=== PATIENT | female | born 1950 | race Caucasian/White ===

== ENCOUNTER 2023-02-12 04:54 | Emergency (ER) | payer MEDICARE, SELFPAY ==
[2023-02-12] VITALS (14 sets, daily range): BP systolic 115; BP diastolic 75; PULSE 82–110; RESP 12–21; TEMP 36.6; O2SAT 100; BMI 22.1
--- NOTE | 2023-02-12 05:17 | PC.NURSE ---
To ED with bilateral leg pain and cramping. Pain started after she had a vasovagal episode at home and thought she was going to pass out, so she laid on her couch and put her legs up. When she put her legs up, the cramping started. Cramping is on the top of the right thigh and right calf, and top of the left thigh as well. Right is worse than left. She is still feeling dizzy with movement. She stood at the bedside to empty her ostomy bag and felt like she was going to fall, asked for assistance to lay back down.
--- NOTE | 2023-02-12 05:28 | ECG_ITS ---
[facility] Test Date: 2023-02-12 Pat Name: ZONIA GUTIERREZ Department: Room: - Gender: Female [employer] Maker: : [id number] Requested By: [id number] Order Number: [id number] Reading MD: JERRY POLLARD Measurements Intervals [place] Rate: 100 P: 71 [place]: 146 QRS: 78 QRSD: 86 T: 69 QT: 338 QTc: 395 Interpretive Statements 1120 Sinus tachycardia Non-Specific T wave inversion in aVL 9140 abnormal rhythm ECG No previous ECG available for comparison Electronically Signed On 02-12-2023 7:20:35 EST by JERRY POLLARD
--- NOTE | 2023-02-12 05:28 | ED.GENADUL1 ---
HPI - General Adult General Chief complaint: Extremity Injury, Lower Stated complaint: BACK/LEG PAIN Time Seen by Provider: 02/12/23 05:04 Source: patient Mode of arrival: ambulance History of Present Illness HPI narrative: This 72-year-old female with a history of vasovagal syncope is brought to the emergency department by EMS from home. The patient states she got up to use the bathroom this morning and felt like she was going to faint. She states this is not uncommon for her and when she feels this way she needs to lie down and put her feet up as soon as possible. She states that she went from the bathroom into the living room and lay down on the floor and put her feet up on the couch and started to have some cramps in her back and legs. She did not pass out. She denies any nausea or vomiting. She has no chest pain or shortness of breath. The patient does have a history of Crohn's disease and had a series of surgeries in the and ultimately had a colostomy placed. She states that since she had her surgery and colostomy placed she has not had any problem with her Crohn's disease. She has been having normal liquid stools for her. There has not been any blood in her stool. She has not had any fever, cough or upper respiratory symptoms. She denies any urinary symptoms. She is feeling somewhat better at this time but still has some mild cramping in her low back and right thigh. He shouldn't states that she typically drink 64 ounces of fluid a day but was very busy yesterday getting ready for Thanksgiving and does not keep track of her fluid intake. She thinks she may be a little dehydrated. Related Data Home Medications Medication Instructions Recorded Confirmed amitriptyline 50 mg tablet 50 mg PO BEDTIME 02/12/23 02/12/23 antiarthritic combination no.2 900 mg PO 02/12/23 mg tablet (glucosamine-chondroitin) atenolol 25 mg tablet 25 mg PO Q24H 02/12/23 02/12/23 calcium carbonate 600 mg calcium 600 mg PO DAILY 02/12/23 02/12/23 (1,500 mg) tablet (Calcium) cholecalciferol (vitamin D3) 2,000 tab PO DAILY 02/12/23 02/12/23 glutamine 500 mg capsule 500 mg PO DAILY 02/12/23 02/12/23 levothyroxine 75 mcg tablet 75 mcg PO DAILY 02/12/23 02/12/23 mecobalamin (vitamin B12) 1,000 1,000 mcg PO DAILY 02/12/23 02/12/23 mcg chewable tablet pantoprazole 20 mg tablet,delayed 20 mg PO DAILY 02/12/23 02/12/23 release Allergies Allergy/AdvReac Type Severity Reaction Status Date / Time meperidine [From Demerol] Allergy Severe Anaphylaxis Verified 02/12/23 04:59 Review of Systems ROS Status of ROS 10 or more systems reviewed and unremarkable except as noted in history and below [facility] Social History Smoking status: Never smoker Exam Narrative Exam Narrative: Nurses note and vital signs reviewed and patient is not hypoxic. General: Thin adult female, no resp distress Skin: Warm, dry, no pallor noted. There is no rash noted. Head: Normocephalic, atraumatic Eye: Normal conjunctiva, no drainage, EOMI. PERRL Ears, Nose, Mouth, and Throat: oral mucosa is dry Cardiovascular: Regular Rate and Rhythm S1S2, no murmurs, rubs or gallops, pulses are brisk and equal bilaterally Respiratory: Patient is in no distress, no accessory muscle use, lungs are clear to auscultation, no wheezing, rales or rhonchi Back: non-tender, no CVA tenderness bilaterally to percussion. GI: Mildly hyperactive bowel sounds, colostomy productive of brown liquid stool, no abdominal tenderness Musculoskeletal: The patient has no evidence of calf tenderness, no pitting edema, symmetrical pulses noted bilaterally, no appreciable muscle spasms, moving extremities without discomfort Neurological: A&O x4, normal speech Psychiatric: Cooperative Constitutional Vital Signs, click to edit/add: Last Vital Signs Temp 98 F 02/12/23 04:55 Pulse 88 02/12/23 04:55 Resp 16 02/12/23 04:55 BP 115/75 02/12/23 04:55 Pulse Ox 100 02/12/23 04:55 O2 Del Method Room Air 02/12/23 04:55 Course Vital Signs Vital signs: Vital Signs Temperature 98 F 02/12/23 04:55 Pulse Rate 88 02/12/23 04:55 Respiratory Rate 16 02/12/23 04:55 Blood Pressure 115/75 02/12/23 04:55 Pulse Oximetry 100 02/12/23 04:55 Oxygen Delivery Method Room Air 02/12/23 04:55 Temperature 98 F 02/12/23 04:55 Pulse Rate 88 02/12/23 04:55 Respiratory Rate 16 02/12/23 04:55 Blood Pressure 115/75 02/12/23 04:55 Pulse Oximetry 100 02/12/23 04:55 Oxygen Delivery Method Room Air 02/12/23 04:55 Medical Decision Making MDM Narrative Medical decision making narrative: 72-year-old female with a history of vasovagal syncope for many years who also has a colostomy due to Crohn's disease presents for evaluation of leg cramps and low back cramps. She has had similar leg cramps in the past. She presents with pain in cramping in her thighs that started after she was in the bathroom and felt like she was going to pass out so she went into the living room, lay down on the floor and put her legs up on the couch. She then started having cramps and called EMS. The patient was busier than usual yesterday preparing for a large family Thanksgiving dinner. She states she typically drink 64 ounces of water but did not keep track of how much water she drank yesterday. She did have some degree of increased output from her colostomy yesterday as well. She has not had a fever. She has not had any chest pain. She did not actually pass out when she fell like she was going to have a vasovagal syncopal event. Her neuro exam is normal. Her EKG was a normal sinus rhythm with no acute changes. An IV was placed and she was medicated with IV fluids and Tylenol. Routine labs are reviewed. She has a Mildly elevated white count at 12.8 with a normal hemoglobin. BUN is 19 and creatinine is 1.25. This seems reasonable for a patient with a history of Crohn's disease and a colostomy however I do not have any previous labs to compare this to. Her magnesium was mildly low at 1.6. She has normal troponin. On reevaluation she states that she is feeling better after the IV fluids. I discussed the mildly decreased magnesium level with her and we discussed IV versus oral replacement. I did explain that she may have increased colostomy output with the magnesium particularly the IV magnesium and she opted for an oral dose of magnesium. She was given 400 mg of mag ox. Her leg cramps have resolved after the fluids and Tylenol. She'll be discharged home with perception for Mag-Ox to use for the next several days. I encouraged her to drink plenty of fluids, follow closely with her family physician and return to the emergency department as needed. Lab Data Labs: Lab Results 02/12/23 Range/Units 05:35 WBC 12.8 H (4.0-11.0) 10^3/uL RBC 4.91 (4.20-5.40) 10^6/uL Hgb 15.1 (12.0-16.0) g/dL Hct 45.2 (36.0-48.0) % MCV 92.1 (81.0-99.0) fL MCH 30.8 (26.7-34.0) pg MCHC 33.4 (29.9-35.2) g/dL RDW 13.1 (11.0-15.0) % Plt Count 263 (150-450) 10^3/uL MPV 10.0 (9.5-13.5) fL Neut % (Auto) 86.7 H (43.0-75.0) % Lymph % (Auto) 7.3 L (20.5-60.0) % [place] % (Auto) 3.8 (1.7-12.0) % Eos % (Auto) 1.7 (0.9-7.0) % Baso % (Auto) 0.2 (0.2-2.0) % Neut # (Auto) 11.1 H (1.4-6.5) 10^3/uL Lymph # (Auto) 0.9 L (1.2-3.8) 10^3/uL [place] # (Auto) 0.5 (0.3-0.8) 10^3/uL Eos # (Auto) 0.2 (0.0-0.7) 10^3/uL Baso # (Auto) 0.0 (0.0-0.1) 10^3/uL Abs Immat Gran (auto) 0.04 H (0.00-0.03) 10^3/uL Imm/Tot Granulo (auto) 0.3 (0.0-0.5) % Sodium 138 (136-145) mmol/L Potassium 4.6 (3.5-5.1) mmol/L Chloride 100 (98-107) mmol/L Carbon Dioxide 29.2 (21.0-32.0) mmol/L Anion Gap 13.4 BUN 19.0 H (7.0-18.0) mg/dL Creatinine 1.25 H (0.55-1.02) mg/dL Est GFR ( Amer) 51 L (>=60) Est GFR (Non-Af Amer) 42 L (>=60) BUN/Creatinine Ratio 15.2 Glucose 128 H (74-106) mg/dL Calcium 10.5 H (8.5-10.1) mg/dL Magnesium 1.6 L (1.8-2.4) mg/dL Total Bilirubin 0.8 (0.2-1.0) mg/dL AST 30 (15-37) U/L ALT 31 (14-59) U/L Alkaline Phosphatase 71 (46-116) U/L Troponin I High Sens 4.0 (4.0-51.3) pg/mL Total Protein 9.0 H (6.4-8.2) g/dL Albumin 4.7 (3.4-5.0) g/dL Globulin 4.3 g/dL Albumin/Globulin Ratio 1.1 ECG Data Attestation: I personally reviewed and interpreted this ECG as follows: (Sinus tachycardia 100 beats for minute, normal axis, normal intervals, no acute ST segment elevation or T-wave inversion) Discharge Plan Discharge Chief Complaint: Extremity Injury, Lower Clinical Impression: Bilateral leg cramps, Vaso vagal episode, Hypomagnesemia Patient Disposition: Home, Self-Care Time of Disposition Decision: 06:40 Condition: Good Prescriptions / Home Meds: No Action amitriptyline 50 mg tablet 50 mg PO BEDTIME levothyroxine 75 mcg tablet 75 mcg PO DAILY pantoprazole 20 mg tablet,delayed release (DR/EC) 20 mg PO DAILY atenolol 25 mg tablet 25 mg PO Q24H glutamine 500 mg capsule 500 mg PO DAILY glucosamine-chondroitin 900 mg tablet PO mecobalamin (vitamin B12) 1,000 mcg tablet,chewable 1,000 mcg PO DAILY calcium carbonate [Calcium 600] 600 mg calcium (1,500 mg) tablet 600 mg PO DAILY cholecalciferol (vitamin D3) 2,000 tab PO DAILY Instructions: Leg Cramps (ED), Hypomagnesemia (ED), Near Syncope (ED), Muscle Cramp (ED) Stand Alone Forms: Portal Instructions Referrals: JOHN COSTELLO [Primary Care Provider] - 1 week
[2023-02-12 05:42] LABS: Basophils Percent Auto 0.2 % (0.2-2.0); Eosinophils Absolute Auto 0.2 10^3/uL (0.0-0.7); Eosinophils Percent Auto 1.7 % (0.9-7.0); Hematocrit 45.2 % (36.0-48.0); Hemoglobin 15.1 g/dL (12.0-16.0); Immature Granulocytes Abs Auto 0.04 10^3/uL (0.00-0.03); Immature Granulocytes Pct Auto 0.3 % (0.0-0.5); Lymphocytes Absolute Auto 0.9 10^3/uL (1.2-3.8); Lymphocytes Percent Auto 7.3 % (20.5-60.0); Mean Corpuscular HGB Conc 33.4 g/dL (29.9-35.2); Mean Corpuscular Hemoglobin 30.8 pg (26.7-34.0); Mean Corpuscular Volume 92.1 fL (81.0-99.0); Monocytes Absolute Auto 0.5 10^3/uL (0.3-0.8); Monocytes Percent Auto 3.8 % (1.7-12.0); Neutrophils Absolute Auto 11.1 10^3/uL (1.4-6.5); Neutrophils Percent Auto 86.7 % (43.0-75.0); Platelet Count 263 10^3/uL (150-450); Red Blood Count 4.91 10^6/uL (4.20-5.40); Red Cell Distribution Width 13.1 % (11.0-15.0); White Blood Count 12.8 10^3/uL (4.0-11.0)
[2023-02-12] MEDS: 0.9 % SODIUM CHLORIDE 1,000 ML 1000 ML IV (05:46)
[2023-02-12] MEDS: ACETAMINOPHEN 325 MG TABLET 650 MG PO (05:46)
[2023-02-12 05:58] LABS: Alanine Aminotransferase 31 U/L (14-59); Albumin Globulin Ratio 1.1; Albumin Level 4.7 g/dL (3.4-5.0); Alkaline Phosphatase 71 U/L (46-116); Anion Gap 13.4; Aspartate Amino Transferase 30 U/L (15-37); BUN Creatinine Ratio 15.2; Bilirubin Total 0.8 mg/dL (0.2-1.0); Calcium 10.5 mg/dL (8.5-10.1); Carbon Dioxide 29.2 mmol/L (21.0-32.0); Chloride 100 mmol/L (98-107); Estimated GFR (African America 51 (>=60); Estimated GFR (Non-African Ame 42 (>=60); Globulin 4.3 g/dL; Glucose 128 mg/dL (74-106); Potassium 4.6 mmol/L (3.5-5.1); Sodium 138 mmol/L (136-145)
[2023-02-12 06:00] LABS: Magnesium 1.6 mg/dL (1.8-2.4)
[2023-02-12] MEDS: MAGNESIUM OXIDE 400 MG TABLET PO (06:48)
== END 2023-02-12 07:02 | disposition home or self-care (01) ==
PROVIDERS: Emergency Provider Emergency Medicine; PCP Internal Medicine
DX: R25.2 Cramp and spasm (principal); R55 Syncope and collapse; E83.42 Hypomagnesemia; Z79.899 Other long term (current) drug therapy; Z79.890 Hormone replacement therapy; Z93.3 Colostomy status; K50.90 Crohn's disease, unspecified, without complications
CPT/HCPCS: 36415; 80053; 83735; 84484; 85025; 93005; 99284